=== PATIENT | male | born 1995 | race Caucasian/White ===

== ENCOUNTER 2022-05-25 12:29 | Outpatient (CLI) | payer OTHER, SELFPAY ==
--- NOTE | ~2022-05-25 | US_ITS ---
EXAMINATION: US soft tissue head and neck DATE: 05/25/2022 13:00 INDICATION: Anterior neck pain. TECHNIQUE: Multiple grayscale and Doppler ultrasound images of the head and neck were obtained. COMPARISON: None FINDINGS: There is a 3.0 x 1.1 x 2.2 cm lymph node in right neck. IMPRESSION: 1. Borderline enlarged lymph node in right neck, likely reactive. Reviewed, dictated and finalized at location A. [employer]
== END 2022-05-25 12:30 | disposition home or self-care (01) ==
LOC: CHSIMG 12:31
PROVIDERS: PCP Physician Assistant; Visit Provider Physician Assistant
DX: M54.2 Cervicalgia (principal); R59.0 Localized enlarged lymph nodes
CPT/HCPCS: 76536

== ENCOUNTER 2022-06-27 10:28 | Outpatient (CLI) | payer OTHER, SELFPAY ==
--- NOTE | ~2022-06-27 | CT_ITS ---
EXAMINATION: CT soft tissue neck wo con DATE: 06/27/2022 10:48 INDICATION: Chronic pharyngitis. TECHNIQUE: Computed tomography (CT) of the neck was performed with 75 mL Omnipaque-350 intravenous co ntrast. Automated exposure control and iterative reconstruction technique were employed. The dose-corrina gth product was 461.26 mGy-cm. COMPARISON: Ultrasound 05/25/2022 FINDINGS: The adenoids are enlarged. The palatine tonsils are enlarged. No abscess. There are no path ologically enlarged lymph nodes. There are multiple carious lesions of the teeth. There are periapica l lucencies at multiple bilateral mandibular molars. There is mild kyphosis of cervical spine. IMPRESSION: 1. Extensive dental disease. 2. Enlarged adenoids and palatine tonsils. No abscess. Reviewed, dictated and finalized at location A. [employer]
== END 2022-06-27 10:29 | disposition home or self-care (01) ==
LOC: CHSIMG 10:29
PROVIDERS: PCP Physician Assistant; Visit Provider Physician Assistant
DX: J31.2 Chronic pharyngitis (principal); K08.9 Disorder of teeth and supporting structures, unspecified; J35.3 Hypertrophy of tonsils with hypertrophy of adenoids
CPT/HCPCS: 70490